=== PATIENT | female | born 1930 | race Caucasian/White ===

== ENCOUNTER 2018-09-08 13:02 | Emergency (ER) | payer MEDICARE, BC ==
--- NOTE | 2018-09-08 13:21 | ER Document Report ---
Addendum entered and electronically signed by KAHLIL PUCKETT NP 09/08/18 13:24: ED Medical Screen (RME) - General Chief Complaint: Fall Injury Stated Complaint: FALL/BODY INJURY Time Seen by Provider: 09/08/18 13:08 Primary Care Provider: CISCO HDZ DO [Primary Care Provider] - Follow up as needed Mode of Arrival: Wheelchair Notes: Daughter also reports slight change in behavior and more crying. Reports patient does not wash herself as well. TRAVEL OUTSIDE OF THE [place] IN LAST 30 DAYS: No - Related Data Allergies/Adverse Reactions: No Known Allergies Allergy (Verified 09/08/18 13:03) Original Note: ED Medical Screen (RME) - General Chief Complaint: Fall Injury Stated Complaint: FALL/BODY INJURY Time Seen by Provider: 09/08/18 13:08 Primary Care Provider: CISCO HDZ DO [Primary Care Provider] - Follow up as needed Mode of Arrival: Wheelchair Information source: Patient, Relative Notes: Patient presents emergency department with left hand skin tear. Daughter at her side reports patient tripped going up some steps in her house hit her hand and hit her head. Patient is taking anticoagulants. Daughter at her side reports patient has history of strokes and Alzheimer's so does not answer questions appropriately all the time. She is not sure if patient tripped or became dizzy. I have greeted and performed a rapid initial assessment of this patient. A comprehensive ED assessment and evaluation of the patient, analysis of test r esults and completion of the medical decision making process will be conducted by additional ED providers. Dictation of this chart was performed using voice recognition software; therefore, there may be some unintended grammatical errors. TRAVEL OUTSIDE OF THE [place] IN LAST 30 DAYS: No - Related Data Allergies/Adverse Reactions: No Known Allergies Allergy (Verified 09/08/18 13:03) Past Medical History - Past Medical History Cardiac Medical History: Reports: Hx Hypertension - reports history of high blood pressure but no longer taking medications Denies: Hx Coronary Artery Disease Pulmonary Medical History: Denies: Hx Asthma Endocrine Medical History: Denies: Hx Diabetes Mellitus Type 1, Hx Diabetes Mellitus Type 2 Past Surgical History: Reports: Hx Breast Surgery - right mastectomy, Hx Tubal Ligation - Immunizations Hx Diphtheria, Pertussis, Tetanus Vaccination: Yes - 2007 Doctor's Discharge - Discharge Referrals: CISCO HDZ DO [Primary Care Provider] - Follow up as needed
--- NOTE | 2018-09-08 13:49 | RADIOLOGY REPORT (SQ) ---
EXAM DESCRIPTION: CT CERVICAL SPINE WITHOUT COMPLETED DATE/TIME: 09/08/2018 1:33 pm REASON FOR STUDY: fall hit head COMPARISON: None. TECHNIQUE: Axial images acquired through the cervical spine without intravenous contrast. Images re viewed with lung, soft tissue and bone windows. Reconstructed coronal and sagittal MPR images review ed. Images stored on PACS. All CT scanners at this facility use dose modulation, iterative reconstruction, and/or weight based d osing when appropriate to reduce radiation dose to as low as reasonably achievable (ALARA). [facility]: Dose Right [facility]: CareDose [facility]: Dose Right [facility]: Teradose 4D [facility]: [employer] RADIATION DOSE: CT Rad equipment meets quality standard of care and radiation dose reduction techniq ues were employed. CTDIvol: 8.5 mGy. DLP: 154 mGy-cm. mGy. LIMITATIONS: None. FINDINGS: ALIGNMENT: Anatomic. MINERALIZATION: Normal. VERTEBRAL BODIES: No fractures or dislocation. DISCS: Mild disc narrowing at C4-5, C5-6, and C6-7 with small marginal osteophytes. FACETS, LATERAL MASSES, POSTERIOR ELEMENTS: Hypertrophic facet changes on the right at C4-5. No frac tures. HARDWARE: None in the spine. VISUALIZED RIBS: No fractures. LUNG APICES AND SOFT TISSUES: No significant or acute findings. OTHER: No other significant finding. IMPRESSION: Mild degenerative disc disease, spondylosis, and facet arthropathy. No acute finding. TECHNICAL DOCUMENTATION: JOB ID: [id number] Quality ID # [id number]: Final reports with documentation of one or more dose reduction techniques (e.g., Au tomated exposure control, adjustment of the mA and/or kV according to patient size, use of iterative reconstruction technique) 2010 [employer]- All Rights Reserved Reading location - IP/workstation name: [email or web address]
--- NOTE | 2018-09-08 14:00 | RADIOLOGY REPORT (SQ) ---
EXAM DESCRIPTION: CT HEAD WITHOUT COMPLETED DATE/TIME: 09/08/2018 1:33 pm REASON FOR STUDY: fall, skin tear left hand, hit head COMPARISON: None. TECHNIQUE: Axial images acquired through the brain without intravenous contrast. Images reviewed wi th bone, brain and subdural windows. Additional sagittal and coronal reconstructions were generated. Images stored on PACS. All CT scanners at this facility use dose modulation, iterative reconstruction, and/or weight based d osing when appropriate to reduce radiation dose to as low as reasonably achievable (ALARA). [facility]: Dose Right [facility]: CareDose [facility]: Dose Right [facility]: Teradose 4D [facility]: [employer] RADIATION DOSE: CT Rad equipment meets quality standard of care and radiation dose reduction techniq ues were employed. CTDIvol: 53.2 mGy. DLP: 1017 mGy-cm.mGy. LIMITATIONS: None. FINDINGS: VENTRICLES: Prominent. CEREBRUM: No masses. No hemorrhage. No midline shift. Areas of low density in the white matter mos t likely due to chronic micro-vascular ischemic change. No evidence for acute infarction. CEREBELLUM: No masses. No hemorrhage. No alteration of density. No evidence for acute infarction. EXTRAAXIAL SPACES: Age-related involutional change. No fluid collections. No masses. ORBITS AND GLOBE: No intra- or extraconal masses. Normal contour of globe without masses. CALVARIUM: No fracture. PARANASAL SINUSES: No fluid or mucosal thickening. SOFT TISSUES: No mass or hematoma. OTHER: No other significant finding. IMPRESSION: CHRONIC CHANGES OF ATROPHY AND MICROVASCULAR ISCHEMIA. NO ACUTE PROCESS. EVIDENCE OF ACUTE STROKE: NO. TECHNICAL DOCUMENTATION: JOB ID: [id number] Quality ID # [id number]: Final reports with documentation of one or more dose reduction techniques (e.g., Au tomated exposure control, adjustment of the mA and/or kV according to patient size, use of iterative reconstruction technique) 2010 [employer]- All Rights Reserved Reading location - IP/workstation name: [email or web address]
[2018-09-08] MEDS ORDERED: ACETAMINOPHEN 325 MG TABLET PO ONE (14:26)
--- NOTE | 2018-09-08 15:46 | RADIOLOGY REPORT (SQ) ---
EXAM DESCRIPTION: HAND LEFT 3 VIEWS COMPLETED DATE/TIME: 09/08/2018 1:40 pm REASON FOR STUDY: fall, skin tear left hand, hit head COMPARISON: None. EXAM PARAMETERS: NUMBER OF VIEWS: Three views. TECHNIQUE: AP, lateral and oblique radiographic images acquired of the left hand. LIMITATIONS: None. FINDINGS: MINERALIZATION: Normal. BONES: No acute fracture or dislocation. No worrisome bone lesions. JOINTS: Degenerative joint changes seen in some of the interphalangeal joints. SOFT TISSUES: No soft tissue swelling. No foreign body. OTHER: No other significant finding. IMPRESSION: Degenerative joint disease. No acute osseous abnormality. TECHNICAL DOCUMENTATION: JOB ID: [id number] [employer]- All Rights Reserved Reading location - IP/workstation name: [email or web address]
--- NOTE | 2018-09-08 16:16 | ER Document Report ---
ED Fall - General Chief Complaint: Fall Injury Stated Complaint: FALL/BODY INJURY Time Seen by Provider: 09/08/18 13:08 Primary Care Provider: CISCO HDZ DO [Primary Care Provider] - Follow up as needed Mode of Arrival: Wheelchair Information source: Patient, Relative TRAVEL OUTSIDE OF THE [place] IN LAST 30 DAYS: No - HPI Notes: Patient is a 87-year-old female history of Alzheimer's, multiple CVA's with right lower extremity weakness, multiple falls who presents to the emergency department after a witnessed fall by her . not present at the bedside in the ER. The family at the bedside states that they were told that she was walking up to carpeted steps when she tripped and fell onto her left side. Family states she has a laceration on to the top of her left hand. They state she had no loss of consciousness and has had no vomiting after the fall. The family reports that the patient has ambulated after the fall but with assistance. Patient is supposed to use a cane but refuses to do so. Family also mention that they are unsure if she used the rail to help step up the stairs, they state she potentially had a handful of the items as she was walking up the steps as they were noted to be scattered on the floor around the patient. Patient at the moment only complains of left hand pain. Denies head or neck pain. Denies hip pain. Patient does have some swelling to her lower extremities which the family report is not new and has been ongoing for over one a year. They report that the primary care physician is aware of this. Patient does have multiple bruises to her lower extremities which the daughter states are not new as of today after the fall. - Related data Allergies/Adverse Reactions: No Known Allergies Allergy (Verified 09/08/18 13:03) Past Medical History - General Information source: Patient, Relative - Social History Smoking Status: Unknown if Ever Smoked Chew tobacco use (# tins/day): No Frequency of alcohol use: None Drug Abuse: None Family History: Reviewed & Not Pertinent Patient has suicidal ideation: No Patient has homicidal ideation: No - Past Medical History Cardiac Medical History: Reports: Hx Hypertension - reports history of high blood pressure but no longer taking medications Denies: Hx Coronary Artery Disease Pulmonary Medical History: Reports: None Denies: Hx Asthma EENT Medical History: Reports: None Neurological Medical History: Reports: Hx Cerebrovascular Accident - Family reports multiple CVA's with right sided weakness. Endocrine Medical History: Reports: None. Denies: Hx Diabetes Mellitus Type 1, Hx Diabetes Mellitus Type 2 Renal/ Medical History: Reports: None. Denies: Hx Peritoneal Dialysis Malignancy Medical History: Reports: None GI Medical History: Reports: None Musculoskeletal Medical History: Reports None Skin Medical History: Reports None Psychiatric Medical History: Reports: Other - Alzheimers Traumatic Medical History: Reports: None Infectious Medical History: Reports: None Past Surgical History: Reports: Hx Breast Surgery - right mastectomy, Hx Tubal Ligation - Immunizations Hx Diphtheria, Pertussis, Tetanus Vaccination: Yes - 2007 Review of Systems - Review of Systems Constitutional: No symptoms reported EENT: No symptoms reported Cardiovascular: No symptoms reported Respiratory: No symptoms reported Gastrointestinal: No symptoms reported Genitourinary: No symptoms reported Female Genitourinary: No symptoms reported Musculoskeletal: See HPI Skin: See HPI Hematologic/Lymphatic: No symptoms reported Neurological/Psychological: No symptoms reported Physical Exam - Vital signs Vitals: Temp Pulse BP Pulse Ox 98.6 F 76 160/80 H 98 09/08/18 13:58 09/08/18 13:58 09/08/18 13:58 09/08/18 13:58 Interpretation: Hypertensive - Notes Notes: GENERAL: Well-appearing, well-nourished and in no acute distress. HEAD: Atraumatic, normocephalic. No ecchymosis, hematoma or lacerations noted on the head. No battles sign or raccoon eyes. EYES: Pupils equal round and reactive to light at 3mm bilaterally, extraocular movements intact, sclera anicteric, conjunctiva are normal. ENT: TMs normal, nares patent, oropharynx clear without exudates. Moist mucous membranes. NECK: Normal range of motion, supple without lymphadenopathy or JVD. LUNGS: Breath sounds clear to auscultation bilaterally and equal. No wheezes rales or rhonchi. HEART: Regular rate and rhythm without murmurs, rubs or gallops. ABDOMEN: Soft, nontender, normoactive bowel sounds. No guarding, no rebound. No masses appreciated. BACK: No cervical, thoracic, lumbar midline tenderness. No saddle anesthesia, normal distal neurovascular exam. Small circular area of erythema noted to the mid upper back that family reports is from her medication patch. No bruising. GENITOURINARY: Deferred. EXTREMITIES: Normal range of motion, edema noted to bilateral lower extremities, non pitting. No clubbing or cyanosis. With left hand patient is able to make a fist with strong statistical assistant, denies numbness or tingling, + opposition, + flexion and extension to all fingers on left hand. + strong left radial pulse. No obvious bony deformity, Irregular v-shaped skin tear to the top of the left hand - bleeding controlled. NEUROLOGICAL: Cranial nerves II through XII grossly intact. Pleasantly confused. PSYCH: Normal mood, normal affect. SKIN: Warm, Dry, normal turgor, no rashes or lesions noted. Course - Re-evaluation Re-evalutation: 09/08/18 After discussion with the family they report that the patient is acting herself since the fall. During multiple interactions with the patient she has been ple asantly confused. Patient's work-up was negative for any acute abnormality. She is to be discharged and follow-up with with her primary care physician at her already scheduled visit this . Family verbalizes understanding. Informed patient family members that she needs to use for cane and have assistance when ambulating. Patient to return if there is any change in mental status, vomiting, inability to tolerate fluids or any worsening signs or symptoms. - Vital Signs Vital signs: Temp Pulse Resp BP Pulse Ox 98.6 F 76 18 150/78 H 99 09/08/18 18:41 09/08/18 18:41 09/08/18 18:41 09/08/18 18:41 09/08/18 18:41 - Laboratory Result Diagrams: 09/08/18 16:19 09/08/18 16:19 Laboratory results interpreted by me: 09/08/18 09/08/18 16:19 16:19 Hgb 11.6 L Hct 34.7 L RDW 14.5 H Seg Neutrophils % 80.0 H Glucose 120 H Alkaline Phosphatase 36 L Total Protein 6.2 L - Diagnostic Test Radiology reviewed: Reports reviewed Radiology results interpreted by me: 09/08/18 CT of the neck showed mild degenerative disc disease with spondylosis. There was no acute finding. CT of the head showed chronic changes of atrophy and micro-vascular ischemia which appear to be chronic. There was no acute process or no evidence of stroke. Patient x-ray of the hand showed no acute fracture dislocation. Patient did have degenerative joint changes seen in some of the interphalangeal joints. There was no soft tissue swelling or no foreign body noted. - EKG Interpretation by Me Additional EKG results interpreted by me: 09/08/18 Patient's EKG computer read as atrial fibrillation. Upon their further evaluation there is a P wave noted. The rhythm is a sinus rhythm with a heart rate of 68. There is a normal axis deviation with no ST or T wave changes in consecutive leads. Patient does have a normal axis deviation Procedures - Laceration/Wound Repair Left Dorsal Hand Wound length (cm): 3 Wound's Depth, Shape: Superficial, Irregular, Flap Laceration pre-procedure: Shur-Clens applied Volume Anesthetic (mLs): 0 Wound explored: Clean, No foreign body removed Irrigated w/ Saline (mLs): 500 Wound Repaired With: Steri-strips Number of Sutures: 0 Post-procedure wound care: Sterile dressing applied Post-procedure NV exam normal: Yes Complications: No Notes: 09/08/18 Left hand skin tear irrigated with shurclens and saline. No foreign body removed. Bleeding noted after irrigation. Pressure held for 5-8 minutes in which that time the bleeding subsided. Nine steri strips applied to skin tear which appeared to hold the skin together appropriately. Applied a non stick telfa dressing with kerlix and coban to apply constant steady pressure. Patient neuro intact after dressing placement. Educated family to keep this dressing intact until already scheduled follow up appointment with her doctor on . Discussed strict return precautions to include fever, change in mental status that is different from her normal, discoloration of her fingers, chest pain, shortness of breath or any other concerning signs or symptoms. Discharge - Discharge Clinical Impression: Laceration Fall Qualifiers: Encounter type: initial encounter Qualified Code(s): W19.XXXA - Unspecified fall, initial encounter Condition: Stable Disposition: HOME, SELF-CARE Additional Instructions: Today you are seen in the emergency department after a fall. Your work-up was unremarkable. Your left hand laceration was cleaned and repaired with Steri- Strips. This was a large skin tear that appeared to be very superficial after cleaning. Please keep the compressive dressing on until follow-up with the primary care physician on . Please return to the emergency department for any worsening signs or symptoms to include chest pain, shortness of breath, dizziness, repeat fall with injury or any other concerning signs or symptoms. Please use your cane and have someone with you while ambulating. Wear non skid shoes and socks at all times, use hand rails in your home when going down or up the stairs, remove loose rugs within the house to help prevent falling. Laceration Care Your laceration has been sutured to keep the skin edges aligned during healing. The time of suture removal depends on the nature and location of your cut. Please follow the care instructions the doctor has outlined for you and return for further care, according to the schedule you've been given. Keep the wound and dressing clean. Unless you were told otherwise, you may shower daily, blotting the wound dry with a clean, unused towel. At other times, If the dressing gets wet or blood soaked, remove it and blot the wound dry, then reapply a new dressing. Unless you were instructed otherwise, dressings should be changed at least daily. If any signs of infection occur (swelling, redness, increasing tenderness, red streaks, tender lumps in the armpit or groin above the laceration, or fever), see the doctor immediately. Referrals: CISCO HDZ DO [Primary Care Provider] - Follow up as needed
[2018-09-08 16:28] LABS: ABSOLUTE LYMPHOCYTES (AUTO) 1.2 10^3/uL (0.5-4.7); ABSOLUTE MONOCYTES (AUTO) 0.5 10^3/uL (0.1-1.4); BASOPHILS % (AUTO) 0.5 % (0-2); EOSINOPHILS % (AUTO) 0.2 % (0-6); HEMATOCRIT 34.7 % (36.0-47.0); HEMOGLOBIN 11.6 g/dL (12.0-15.5); LYMPHOCYTES % (AUTO) 14.1 % (13-45); MEAN CORPUSCULAR HEMOGLOBIN 29.9 pg (27.0-33.4); MEAN CORPUSCULAR HGB CONC 33.3 g/dL (32.0-36.0); MEAN CORPUSCULAR VOLUME 90 fl (80-97); MONOCYTES % (AUTO) 5.2 % (3-13); PLATELET COUNT 247 10^3/uL (150-450); RED BLOOD COUNT 3.87 10^6/uL (3.72-5.28); RED CELL DISTRIBUTION WIDTH 14.5 % (11.5-14.0); TOTAL CELLS COUNTED % (AUTO) 100 %; WHITE BLOOD COUNT 8.8 10^3/uL (4.0-10.5)
[2018-09-08 16:34] LABS: PARTIAL THROMBOPLASTIN TIME 28.3 SEC (23.5-35.8); PROTHROMBIN TIME 12.6 SEC (11.4-15.4)
[2018-09-08 16:46] LABS: ALANINE AMINOTRANSFERASE 22 U/L (9-52); ALBUMIN 3.8 g/dL (3.5-5.0); ALKALINE PHOSPHATASE 36 U/L (38-126); ANION GAP 5 (5-19); ASPARTATE AMINO TRANSFERASE 19 U/L (14-36); BILIRUBIN,DIRECT 0.3 mg/dL (0.0-0.4); BILIRUBIN,TOTAL 0.7 mg/dL (0.2-1.3); BLOOD UREA NITROGEN 18 mg/dL (7-20); CALCIUM 9.4 mg/dL (8.4-10.2); CARBON DIOXIDE 28 mmol/L (22-30); CHLORIDE 107 mmol/L (98-107); GLUCOSE 120 mg/dL (75-110); SODIUM 140.1 mmol/L (137-145); TOTAL PROTEIN 6.2 g/dL (6.3-8.2)
[2018-09-08 17:02] LABS: APPEARANCE,URINE CLEAR; BILIRUBIN,URINE NEGATIVE (NEGATIVE); COLOR,URINE YELLOW; GLUCOSE, URINE NEGATIVE (NEGATIVE); KETONES,URINE NEGATIVE (NEGATIVE); LEUKOCYTE ESTERASE,URINE NEGATIVE (NEGATIVE); NITRITE,URINE NEGATIVE (NEGATIVE); PROTEIN,URINE NEGATIVE (NEGATIVE); UROBILINOGEN,URINE NEGATIVE mg/dL (<2.0)
[2018-09-08 18:42] VITALS: BP 150/78
--- NOTE | 2018-09-08 19:24 | EKG REPORT ---
SEVERITY:- BORDERLINE ECG - NSR 68. BASELINE ARTEFACTS IN LATERAL LEADS. : Confirmed by: Haider Morales MD 08-Sep-2018 19:24:03
== END 2018-09-08 18:43 | disposition home or self-care (01) ==
LOC: ER 13:02
PROC: 0HQGXZZ Repair Left Hand Skin, External Approach (ICD-10-PCS; principal; 2018-09-08)
DX: S61.412A Laceration without foreign body of left hand, initial encounter (principal); W10.8XXA Fall (on) (from) other stairs and steps, initial encounter; Y93.9 Activity, unspecified; Y92.9 Unspecified place or not applicable; S80.10XA Contusion of unspecified lower leg, initial encounter; I48.91 Unspecified atrial fibrillation; Y99.9 Unspecified external cause status; G30.9 Alzheimer's disease, unspecified; F02.80 Dementia in other diseases classified elsewhere, unspecified severity, without behavioral disturbance, psychotic disturbance, mood disturbance, and anxiety; I69.398 Other sequelae of cerebral infarction; Z90.11 Acquired absence of right breast and nipple; Z98.51 Tubal ligation status
CPT/HCPCS: 99284; 36415; 87086; 85025; 85610; 85730; 87088; 80053; 81001; 87186; 73130; 70450; 72125; 93005; 93010; 12002; A9270

== ENCOUNTER 2018-11-19 19:12 | Emergency (ER) | payer MEDICARE, BC ==
[2018-11-19 20:27] LABS: INTERNATIONAL RATION (INR) 1.06; PROTHROMBIN TIME 13.8 SEC (11.4-15.4)
[2018-11-19 20:28] LABS: PARTIAL THROMBOPLASTIN TIME 28.1 SEC (23.5-35.8)
[2018-11-19 20:39] LABS: ALBUMIN 3.4 g/dL (3.5-5.0); ALKALINE PHOSPHATASE 27 U/L (38-126); ANION GAP 6 (5-19); ASPARTATE AMINO TRANSFERASE 22 U/L (14-36); BILIRUBIN,DIRECT 0.1 mg/dL (0.0-0.4); BILIRUBIN,TOTAL 0.3 mg/dL (0.2-1.3); BLOOD UREA NITROGEN 22 mg/dL (7-20); CALCIUM 8.5 mg/dL (8.4-10.2); CARBON DIOXIDE 25 mmol/L (22-30); CHLORIDE 106 mmol/L (98-107); GLUCOSE 110 mg/dL (75-110); POTASSIUM 3.9 mmol/L (3.6-5.0); TOTAL PROTEIN 5.6 g/dL (6.3-8.2)
--- NOTE | 2018-11-19 22:19 | ER Document Report ---
ED General - General Chief Complaint: Arm Injury Stated Complaint: FALL Time Seen by Provider: 11/19/18 21:57 Mode of Arrival: Medic Information source: Patient, Relative TRAVEL OUTSIDE OF THE [place] IN LAST 30 DAYS: No - HPI Notes: Patient is a 88-year-old female history of dementia presents emergency department from home by EMS with report from the patient's son who is a caregiver that the patient was going down some steps to the [place] and slipped and fell injuring her left side and striking her head. The patient is at her mental status baseline and there is no unilateral weakness. She admits to losing her step when she fell but she denies any syncope or other injury. The patient reports no neck pain or midline back pain. The patient denies any focal numbness or paresthesia or focal weakness. No abdominal pain or chest pain. No cough or congestion. No recent medication changes. For EMS the patient was normotensive, arrives slightly hypertensive and then settled out to a normal blood pressure. Patient was given Ultram and Advil prior to arrival. Medications Plavix quetiapine tramadol prednisone vitamin D2 duloxetine and Rivastigmine - Related Data Allergies/Adverse Reactions: No Known Allergies Allergy (Verified 09/08/18 13:03) Past Medical History - General Information source: Patient, Relative - Social History Smoking Status: Unknown if Ever Smoked Frequency of alcohol use: None Drug Abuse: None Lives with: Family Family History: Reviewed & Not Pertinent Patient has suicidal ideation: No Patient has homicidal ideation: No - Past Medical History Cardiac Medical History: Reports: Hx Hypertension - reports history of high blood pressure but no longer taking medications Denies: Hx Coronary Artery Disease Pulmonary Medical History: Denies: Hx Asthma Neurological Medical History: Reports: Hx Cerebrovascular Accident - Family reports multiple CVA's with right sided weakness. Endocrine Medical History: Denies: Hx Diabetes Mellitus Type 1, Hx Diabetes Mellitus Type 2 Renal/ Medical History: Denies: Hx Peritoneal Dialysis Past Surgical History: Reports: Hx Breast Surgery - right mastectomy, Hx Tubal Ligation - Immunizations Hx Diphtheria, Pertussis, Tetanus Vaccination: Yes - 2007 Review of Systems - Review of Systems -: Yes All other systems reviewed and negative Physical Exam - Vital signs Vitals: Resp BP Pulse Ox 11 L 177/77 H 97 11/19/18 19:31 11/19/18 19:31 08/14/19 19:31 - Notes Notes: PHYSICAL EXAMINATION: GENERAL: Well-appearing, well-nourished and in no acute distress. HEAD: Right forehead contusion and abrasion. No bony deformity or crepitance. EYES: Pupils equal round and reactive to light, extraocular movements intact, conjunctiva are normal. ENT: Nares patent, oropharynx clear without exudates. Moist mucous membranes. NECK: Normal range of motion, supple without lymphadenopathy. Nontender LUNGS: Breath sounds clear to auscultation bilaterally and equal. No wheezes rales or rhonchi. HEART: Regular rate and rhythm without murmurs ABDOMEN: Soft, nontender, nondistended abdomen. No guarding, no rebound. No masses appreciated. Female : deferred Musculoskeletal: Normal range of motion, no pitting or edema. No cyanosis. Patient has some pain to the right lateral fibular region. No bony deformity or crepitance there is an overlying contusion there. NEUROLOGICAL: Cranial nerves grossly intact. Normal speech, normal gait. Normal sensory, motor exams. Patient is alert but has some word finding difficulties which the patient's family states is chronic. No unilateral motor or sensory deficits. Patient has chronic long-standing dementia, and family states that this is her normal mentation and speech. PSYCH: Normal mood, normal affect. SKIN: Warm, Dry, normal turgor. Patient has multiple skin tears left upper extremity and left lower extremity. Nothing that would require suturing. The only pain is over the left lateral fibular region. Distally, the patient is neurovascularly intact. Good pulses. No evidence for infection or foreign body. Course - Re-evaluation Re-evalutation: 11/19/18 22:19 Patient's son states that last tetanus was in the last few months related to [facility] previous falls. Head CT was negative and x-ray of the left lower extremity was negative. The pa tient had the wounds cleaned and there was minimal bleeding from the left lower extremity wound but this subsided. The patient was able to ambulate per her baseline. She should be using a walker and or canes, but she usually does not. She was encouraged to use a walker. The son felt stable with the patient going home. 11/20/18 01:15 - Vital Signs Vital signs: Temp Pulse Resp BP Pulse Ox 98.1 F 56 L 16 160/66 H 95 11/19/18 19:35 11/19/18 19:35 11/19/18 21:34 11/19/18 21:34 11/19/18 21:34 - Laboratory Result Diagrams: 11/19/18 20:00 Laboratory results interpreted by me: 11/19/18 20:00 BUN 22 H Alkaline Phosphatase 27 L Total Protein 5.6 L Albumin 3.4 L Discharge - Discharge Clinical Impression: Skin tear Accidental fall Qualifiers: Encounter type: initial encounter Qualified Code(s): W19.XXXA - Unspecified fall, initial encounter Head injury Qualifiers: Encounter type: initial encounter Qualified Code(s): S09.90XA - Unspecified injury of head, initial encounter Contusion Qualifiers: Encounter type: initial encounter Contusion area: lower leg Laterality: left Qualified Code(s): S80.12XA - Contusion of left lower leg, initial encounter Condition: Stable Disposition: HOME, SELF-CARE Instructions: Skin Tear ([facility]), Head Injury Precautions ([facility]) Additional Instructions: Keep wounds clean and dry. Change wound dressings every 1 to 2 days. Return to the emergency department in case of uncontrolled bleeding, significant pain or redness or fever. No Plavix (clopidogrel) for at least 5 days or until bleeding has subsided. Recommend to use a walker to prevent falls.
--- NOTE | 2018-11-19 23:07 | RADIOLOGY REPORT (SQ) ---
EXAM DESCRIPTION: XR TIBIA FIBULA 2 VIEWS COMPLETED DATE/TME: 11/19/2018 22:12 CLINICAL HISTORY: 88 years Female, fall with L leg injury COMPARISON: None. Findings: Known soft tissue injury; no radioopaque foreign body. Chondrocalcinosis of the left knee. Bones, joints, and soft tissues of the LEFT XR TIBIA FIBULA 2 VIEWS appear otherwise intact. IMPRESSION: Soft tissue injury; else, no acute findings.
--- NOTE | 2018-11-19 23:26 | RADIOLOGY REPORT (SQ) ---
EXAM DESCRIPTION: CT HEAD WITHOUT IV CONTRAST COMPLETED DATE/TME: 11/19/2018 22:11 CLINICAL HISTORY: 88 years, Female, Head injury COMPARISON: CT head 09/08/2018 TECHNIQUE: Axial images of the head were performed without the use of intravenous contrast, with sagittal and coronal reformatted images. Images stored on PACS. All CT scanners at this facility use dose modulation, iterative reconstruction, and/or weight based dosing when appropriate to reduce radiation dose to as low as reasonably achievable (ALARA). [facility]: Dose Right [facility]: CareDose [facility]: Dose Right [facility]: Teradose 4D [facility]: Simpirica Spine LIMITATIONS: None. FINDINGS: No skull fracture. No intracranial bleed. No evidence of acute infarct. No evidence of mass or hydrocephalus. There is cortical atrophy and chronic white matter ischemic changes. There is no significant change, as compared with the prior CT scan. IMPRESSION: No skull fracture. No intracranial bleed. TECHNICAL DOCUMENTATION: Quality ID # 436: Final reports with documentation of one or more dose reduction techniques (e.g., Automated exposure control, adjustment of the mA and/or kV according to patient size, use of iterative reconstruction technique) copyright 2010 [employer]- All Rights Reserved
[2018-11-20] MEDS ORDERED: TRAMADOL HCL 50 MG TABLET PO ONE (00:27)
[2018-11-20 01:35] VITALS: BP 183/65
== END 2018-11-20 01:25 | disposition home or self-care (01) ==
LOC: ER 19:12
DX: S09.90XA Unspecified injury of head, initial encounter (principal); S80.12XA Contusion of left lower leg, initial encounter; S41.112A Laceration without foreign body of left upper arm, initial encounter; S81.812A Laceration without foreign body, left lower leg, initial encounter; W19.XXXA Unspecified fall, initial encounter; Z79.01 Long term (current) use of anticoagulants; Z79.899 Other long term (current) drug therapy
CPT/HCPCS: 99284; 36415; 85610; 85730; 80053; 84484; 73590; 70450; A9270

== ENCOUNTER 2019-02-07 08:06 | Observation (INO) | payer MEDICARE, BC ==
[2019-02-07 09:13] LABS: ABSOLUTE BASOPHILS # (AUTO) 0.1 10^3/uL (0.0-0.2); ABSOLUTE EOSINOPHILS # (AUTO) 0.1 10^3/uL (0.0-0.6); ABSOLUTE LYMPHOCYTES (AUTO) 2.5 10^3/uL (0.5-4.7); ABSOLUTE MONOCYTES (AUTO) 0.9 10^3/uL (0.1-1.4); ABSOLUTE NEUT (AUTO) 5.3 10^3/uL (1.7-8.2); BASOPHILS % (AUTO) 0.7 % (0-2); EOSINOPHILS % (AUTO) 1.4 % (0-6); HEMOGLOBIN 10.6 g/dL (12.0-15.5); LYMPHOCYTES % (AUTO) 27.8 % (13-45); MEAN CORPUSCULAR HEMOGLOBIN 27.7 pg (27.0-33.4); MEAN CORPUSCULAR HGB CONC 32.1 g/dL (32.0-36.0); MEAN CORPUSCULAR VOLUME 86 fl (80-97); MONOCYTES % (AUTO) 10.3 % (3-13); PLATELET COUNT 318 10^3/uL (150-450); RED BLOOD COUNT 3.83 10^6/uL (3.72-5.28); RED CELL DISTRIBUTION WIDTH 17.5 % (11.5-14.0); SEGMENTED NEUTROPHILS % (AUTO) 59.8 % (42-78); TOTAL CELLS COUNTED % (AUTO) 100 %; WHITE BLOOD COUNT 8.8 10^3/uL (4.0-10.5)
[2019-02-07] MEDS ORDERED: NORMAL SALINE 1000 ML 1,000 ML IV ONE (09:24)
--- NOTE | 2019-02-07 09:26 | ER Document Report ---
ED General - General Chief Complaint: Altered Mental Status Stated Complaint: LOSS OF APPETITE Time Seen by Provider: 02/07/19 09:12 Notes: 88-year-old female presenting with a chief complaint of mild agitation and diminished oral intake. This is an elderly lady with a history of moderate dementia who lives at home with her children. She has been subject to multiple falls over several years. He is oriented to person only at baseline. Patient was transported here via EMS today because of family members concerned that her oral intake had been diminished over several days. They also note that she is a little more agitated than usual. Patient is periodically pointing to suprapubic area and complaining of discomfort. No fever chills or emesis reported. History is obtained primarily from EMS report. History obtained from the sandra ent very limited due to her dementia. Onset is gradual over several days. Duration: Persistent. Quality: As described above. Location: Suprapubic discomfort. Radiation: None reported. Precipitating factors: Associated with diminished oral intake per family. Relieving factors: None Severity: Moderate Pertinent prior history as indicated above. TRAVEL OUTSIDE OF THE [place] IN LAST 30 DAYS: No - Related Data Allergies/Adverse Reactions: No Known Allergies Allergy (Verified 02/07/19 10:18) Home Medications: Sulfamethoxazole-TMP SS. Ferrous Sulfate. Clopidogrel Bisulfat. Prednisone. Duloxetine HCL DR. Tramadol HCL. Quetiapine Fumarate Past Medical History - Social History Smoking Status: Unknown if Ever Smoked Family History: Reviewed & Not Pertinent Patient has suicidal ideation: No Patient has homicidal ideation: No - Past Medical History Cardiac Medical History: Reports: Hx Hypertension - reports history of high blood pressure but no longer taking medications Denies: Hx Coronary Artery Disease Pulmonary Medical History: Denies: Hx Asthma Neurological Medical History: Reports: Hx Cerebrovascular Accident - Family reports multiple CVA's with right sided weakness. 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 Physical Exam - Vital signs Vitals: Temp Pulse Resp BP Pulse Ox 97.9 F 68 16 137/100 H 100 02/07/19 08:10 02/07/19 08:10 02/07/19 08:10 02/07/19 08:10 02/07/19 08:10 Notes: GENERAL: Somewhat frail elderly female appearing mildly agitated. SKIN: Mildly diminished with scattered ecchymoses upper and lower extremities of variable ages.. HEAD: Normocephalic atraumatic. EYES: PERRLA. Conjunctivae and sclerae clear. EARS: CANALS AND TMS CLEAR. NOSE: CLEAR. MOUTH: Oral mucosa is dry. Lips appear parched. No stridor or edema. No drooling. NECK: Supple. No masses or thyromegaly. No adenopathy. Carotids 2+ without bruits. No JVD. BACK: Symmetrical without tenderness. CHEST: Respirations unlabored. Breath sounds clear and symmetrical. HEART: Regular rhythm. No murmur gallop or rub. ABDOMEN: Soft with mild suprapubic tenderness. No masses, organomegaly or rebound. Bowel sounds normally active. No bruits. GENITALIA: Deferred. EXTREMITIES: 1+ pretibial edema bilateral. No calf tenderness. Cap refill less than 1.5 seconds. Dorsalis pedis and posterior tibial pulses 3+ and symmetrical. NEUROLOGICAL: GCS 14. Patient is oriented only to person as per baseline. Speech pattern is halting. Cranial nerves II through XII intact. Sensorimotor and cerebellar normal. Normal tone. Course - Re-evaluation Re-evalutation: 02/07/19 09:35 I am somewhat suspicious this lady may have a urinary tract infection. Urinalysis is been submitted to the lab and we will also obtain CBC and comprehensive chemistry profile as well as a chest x-ray. She appears dehydrated will receive some normal saline IV hydration. - Vital Signs Vital signs: Temp Pulse Resp BP Pulse Ox 97.9 F 68 16 137/100 H 100 02/07/19 08:10 02/07/19 08:10 02/07/19 08:10 02/07/19 08:10 02/07/19 08:10 - Laboratory Result Diagrams: 02/07/19 08:57 02/07/19 08:57 Laboratory results interpreted by me: 02/07/19 02/07/19 02/07/19 08:57 08:57 08:57 Hgb 10.6 L Hct 33.0 L RDW 17.5 H Glucose 72 L Magnesium 2.4 H Urine Blood MODERATE H Ur Leukocyte Esterase MODERATE H Discharge - Discharge Clinical Impression: Dehydration Urinary tract infection Qualifiers: Urinary tract infection type: acute cystitis Hematuria presence: without hematuria Qualified Code(s): N30.00 - Acute cystitis without hematuria Dementia Qualifiers: Dementia type: unspecified type Dementia behavioral disturbance: with behavioral disturbance Qualified Code(s): F03.91 - Unspecified dementia with behavioral disturbance Condition: Stable Disposition: ADMITTED INPATIENT Admitting Provider: Arlyn (Hospitalist) - [facility] Unit Admitted: Medical Floor
[2019-02-07 09:30] LABS: AMORPHOUS SEDIMENT,URINE TRACE /HPF; APPEARANCE,URINE CLOUDY; BILIRUBIN,URINE NEGATIVE (NEGATIVE); COLOR,URINE YELLOW; GLUCOSE, URINE NEGATIVE (NEGATIVE); KETONES,URINE NEGATIVE (NEGATIVE); LEUKOCYTE ESTERASE,URINE MODERATE (NEGATIVE); NITRITE,URINE NEGATIVE (NEGATIVE); PROTEIN,URINE NEGATIVE (NEGATIVE); URINE SPECIFIC GRAVITY 1.009; UROBILINOGEN,URINE NEGATIVE mg/dL (<2.0)
[2019-02-07 09:32] LABS: ALBUMIN 3.7 g/dL (3.5-5.0); ALKALINE PHOSPHATASE 38 U/L (38-126); ANION GAP 5 (5-19); ASPARTATE AMINO TRANSFERASE 25 U/L (14-36); BILIRUBIN,DIRECT 0.2 mg/dL (0.0-0.4); BILIRUBIN,TOTAL 0.9 mg/dL (0.2-1.3); BLOOD UREA NITROGEN 14 mg/dL (7-20); CALCIUM 8.7 mg/dL (8.4-10.2); CARBON DIOXIDE 26 mmol/L (22-30); CHLORIDE 107 mmol/L (98-107); GLUCOSE 72 mg/dL (75-110); POTASSIUM 3.6 mmol/L (3.6-5.0); TOTAL PROTEIN 6.4 g/dL (6.3-8.2)
--- NOTE | 2019-02-07 09:48 | RADIOLOGY REPORT (SQ) ---
EXAM DESCRIPTION: CHEST SINGLE VIEW COMPLETED DATE/TIME: 02/07/2019 9:38 am REASON FOR STUDY: AMS COMPARISON: 08/23/2012. FINDINGS: Single-view chest, AP portable upright. Lungs are clear. Stable cardiomediastinal silhouette. Osteopenia with healing anterior left rib fracture, likely the 3rd. No pneumothorax. TECHNICAL DOCUMENTATION: JOB ID: [id number] Reading location - IP/workstation name: [email or web address]
[2019-02-07] MEDS ORDERED: CEFTRIAXONE INJ 1000 MG VIAL IV ONE (10:12)
[2019-02-07] MEDS ORDERED: LORAZEPAM INJ 2 MG/1 ML VIAL IV ONE ×2 (10:27→23:00)
--- NOTE | 2019-02-07 10:42 | RADIOLOGY REPORT (SQ) ---
EXAM DESCRIPTION: PELVIS AP COMPLETED DATE/TIME: 02/07/2019 10:33 am REASON FOR STUDY: r/o fx. s/p fall COMPARISON: None. NUMBER OF VIEWS: Single AP view pelvis. LIMITATIONS: Localizing clinical information not provided. FINDINGS: Osteopenia. As assessed, pelvic bones are intact. Apparent lucencies in both femoral nec k regions which may be artifact. Unilateral or bilateral non displaced hip fractures not excluded. Degenerative narrowing in the hips. OTHER: No other significant finding. IMPRESSION: Irregular lucencies through both femoral necks. Recommend further evaluation with CT. TECHNICAL DOCUMENTATION: JOB ID: [id number] Reading location - IP/workstation name: [email or web address]
[2019-02-07] MEDS ORDERED: HALOPERIDOL LACTATE INJ 5 MG/1 ML VIAL IM ONE (11:30)
--- NOTE | 2019-02-07 12:55 | RADIOLOGY REPORT (SQ) ---
EXAM DESCRIPTION: CT HEAD WITHOUT COMPLETED DATE/TIME: 02/07/2019 12:44 pm REASON FOR STUDY: AMS, Recurrant falls COMPARISON: 11/19/2018. TECHNIQUE: Axial images acquired through the brain without intravenous contrast. Images reviewed wi th bone, brain and subdural windows. Additional sagittal and coronal reconstructions were generated. Images stored on PACS. All CT scanners at this facility use dose modulation, iterative reconstruction, and/or weight based d osing when appropriate to reduce radiation dose to as low as reasonably achievable (ALARA). [facility]: Dose Right [facility]: CareDose [facility]: Dose Right [facility]: Teradose 4D [facility]: Intell[employer]ense RADIATION DOSE: CT Rad equipment meets quality standard of care and radiation dose reduction techniq ues were employed. CTDIvol: 53.2 mGy. DLP: 1017 mGy-cm. mGy. LIMITATIONS: Initial scanning was nondiagnostic due to motion. Repeat scanning is mildly persistent ly limited by motion. FINDINGS: VENTRICLES: Prominent. Chronic appearance. CEREBRUM: No masses. No hemorrhage. No midline shift. No evidence for acute infarction. Chronic wh ite matter low densities, small vessel disease. CEREBELLUM: No masses. No hemorrhage. No alteration of density. No evidence for acute infarction. EXTRAAXIAL SPACES: No fluid collections. No masses. ORBITS AND GLOBE: No intra- or extraconal masses. Normal contour of globe without masses. CALVARIUM: No fracture. PARANASAL SINUSES: No fluid or mucosal thickening. SOFT TISSUES: No mass or hematoma. OTHER: No other significant finding. IMPRESSION: 1. Somewhat limited study. 2. Chronic changes without acute abnormality detected. EVIDENCE OF ACUTE STROKE: NO. COMMENT: Quality ID # 436: Final reports with documentation of one or more dose reduction techniques (e.g., Automated exposure control, adjustment of the mA and/or kV according to patient size, use of iterative reconstruction technique) TECHNICAL DOCUMENTATION: JOB ID: [id number] [employer]- All Rights Reserved Reading location - IP/workstation name: [email or web address]
--- NOTE | 2019-02-07 13:06 | RADIOLOGY REPORT (SQ) ---
EXAM DESCRIPTION: CT PELVIS WITHOUT COMPLETED DATE/TIME: 02/07/2019 12:45 pm REASON FOR STUDY: Abn plain film; r/o hip fx. COMPARISON: Lumbar spine radiographs 2013. TECHNIQUE: CT scan of the pelvis performed without intravenous or oral contrast. Images reviewed wi th soft tissue and bone windows. Reconstructed coronal and sagittal MPR images reviewed. All images stored on PACS. All CT scanners at this facility use dose modulation, iterative reconstruction, and/or weight based d osing when appropriate to reduce radiation dose to as low as reasonably achievable (ALARA). [facility]: Dose Right [facility]: CareDose [facility]: Dose Right [facility]: Teradose 4D [facility]: Smart [employer] RADIATION DOSE: CT Rad equipment meets quality standard of care and radiation dose reduction techniq ues were employed. CTDIvol: 14.4 mGy. DLP: 525 mGy-cm. mGy. LIMITATIONS: None. FINDINGS: PELVIC BONES: Bone island in the left ilium. No sacral or acetabular or pubic fracture. VISUALIZED SPINE: Slight compression deformities at L4 and L5, chronic compared with radiographs. Sandro ne island at the base of the L4 pedicle on the right. HIP(S): Degenerative narrowing and spurring. This explains recent appearance on radiographs, along w ith osteopenia. No fracture evident. No suspicious bone lesion. PELVIC SOFT TISSUES: No significant findings. EXTRAPELVIC SOFT TISSUES: No significant findings. OTHER: No other significant finding. IMPRESSION: 1. Osteopenia and degenerative changes. 2. No hip or pelvic fracture identified. Findings on recent radiographs were artifact. TECHNICAL DOCUMENTATION: JOB ID: [id number] Quality ID # [id number]: Final reports with documentation of one or more dose reduction techniques (e.g., Au tomated exposure control, adjustment of the mA and/or kV according to patient size, use of iterative reconstruction technique) 2010 [employer]- All Rights Reserved Reading location - IP/workstation name: [email or web address]
[2019-02-07] MEDS ORDERED: MAG HYDROX/AL HYDROX/SIMETH SUSP 30 ML UDCUP PO PRN (13:45)
[2019-02-07] MEDS ORDERED: ONDANSETRON HCL INJ/PF 4 MG/2 ML SDV IV PRN (13:45)
[2019-02-07] MEDS ORDERED: ACETAMINOPHEN 325 MG TABLET PO PRN (13:45)
--- NOTE | 2019-02-07 13:56 | PDOC H&P ---
History of Present Illness Admission Date/PCP: 02/07/19 13:42 Unknown primary care Patient complains of: Agitation and diminished oral intake History of Present Illness: DONNA CLAY is a 88 year old female who presents the ER via EMS. Patient family not at bedside at this time. Patient is demented and unable to answer questions at this time secondary to dementia and receiving Haldol and Ativan in the ER. Unable to complete further history and physical. Past Medical History Cardiac Medical History: Reports: Hypertension - reports history of high blood pressure but no longer taking medications Denies: Coronary Artery Disease Pulmonary Medical History: Denies: Asthma Endocrine Medical History: Denies: Diabetes Mellitus Type 1, Diabetes Mellitus Type 2 Musculoskeltal Medical History: Reports: Arthritis - osteoprosis Psychiatric Medical History: Reports: Dementia Past Surgical History Past Surgical History: Reports: Tubal Ligation Social History Information Source: Patient Lives with: Family Smoking Status: Unknown if Ever Smoked Frequency of Alcohol Use: None Hx Recreational Drug Use: No Drugs: None Hx Prescription Drug Abuse: No - Advance Directive Resuscitation Status: Full Code Family History Family History: Other - Unable to assess secondary to patient's mental status Parental Family History Reviewed: No - Unable to assess secondary to patient's mental status Children Family History Reviewed: Unknown Sibling(s) Family History Reviewed.: Unknown Medication/Allergy Allergies/Adverse Reactions: No Known Allergies Allergy (Verified 02/07/19 10:18) Review of Systems ROS unobtainable: Due to mental status Physical Exam Vital Signs: Temp Pulse Resp BP Pulse Ox 97.9 F 68 16 137/100 H 100 02/07/19 08:10 02/07/19 08:10 02/07/19 08:10 02/07/19 08:10 02/07/19 08:10 Intake & Output 02/06/19 02/07/19 02/08/19 06:59 06:59 05:59 Intake Total 1000 Balance 1000 Weight 58.06 kg General appearance: PRESENT: no acute distress, well-developed, well-nourished Head exam: PRESENT: atraumatic, normocephalic Eye exam: PRESENT: conjunctiva pink, EOMI, PERRLA. ABSENT: scleral icterus Ear exam: PRESENT: normal external ear exam Mouth exam: PRESENT: moist, tongue midline Neck exam: ABSENT: carotid bruit, JVD, lymphadenopathy, thyromegaly Respiratory exam: PRESENT: clear to auscultation maya, decreased breath sounds, symmetrical, unlabored. ABSENT: rales, rhonchi, wheezes Cardiovascular exam: PRESENT: RRR. ABSENT: diastolic murmur, rubs, systolic murmur Pulses: PRESENT: normal dorsalis pedis pul Vascular exam: PRESENT: normal capillary refill GI/Abdominal exam: PRESENT: normal bowel sounds, soft. ABSENT: distended, guarding, mass, organolmegaly, rebound, tenderness Rectal exam: PRESENT: deferred Extremities exam: PRESENT: full ROM. ABSENT: calf tenderness, clubbing, pedal edema Neurological exam: PRESENT: other - Unable to assess secondary to patient mental status. ABSENT: motor sensory deficit Psychiatric exam: PRESENT: other - Unable to assess secondary to patient mental status. ABSENT: homicidal ideation, suicidal ideation Skin exam: PRESENT: dry, intact, warm. ABSENT: cyanosis, rash Results Laboratory Results: 02/07/19 08:57 02/07/19 08:57 02/07/19 02/07/19 02/07/19 08:57 08:57 08:57 WBC 8.8 RBC 3.83 Hgb 10.6 L Hct 33.0 L MCV 86 MCH 27.7 MCHC 32.1 RDW 17.5 H Plt Count 318 Seg Neutrophils % 59.8 Sodium 137.9 Potassium 3.6 Chloride 107 Carbon Dioxide 26 Anion Gap 5 BUN 14 Creatinine 0.82 Est GFR ( Amer) > 60 Glucose 72 L Calcium 8.7 Magnesium 2.4 H Total Bilirubin 0.9 AST 25 Alkaline Phosphatase 38 Total Protein 6.4 Albumin 3.7 Urine Color YELLOW Urine Appearance CLOUDY Urine pH 8.0 Ur Specific [place] 1.009 Urine Protein NEGATIVE Urine Glucose (UA) NEGATIVE Urine Ketones NEGATIVE Urine Blood MODERATE H Urine Nitrite NEGATIVE Ur Leukocyte Esterase MODERATE H Urine WBC (Auto) 4 Urine RBC (Auto) 11 Impressions: Head CT 02/07/19 10:09 IMPRESSION: 1. Somewhat limited study. 2. Chronic changes without acute abnormality detected. EVIDENCE OF ACUTE STROKE: NO. Pelvis X-Ray 02/07/19 10:10 IMPRESSION: Irregular lucencies through both femoral necks. Recommend further evaluation with CT. Pelvis CT 02/07/19 11:26 IMPRESSION: 1. Osteopenia and degenerative changes. 2. No hip or pelvic fracture identified. Findings on recent radiographs were artifact. Assessment and Plan - Diagnosis (1) Urinary tract infection Qualifiers: Urinary tract infection type: acute cystitis Hematuria presence: without hematuria Qualified Code(s): N30.00 - Acute cystitis without hematuria Is this a current diagnosis for this admission?: Yes Plan: 02/07/2019-Rocephin 1 g IV daily await urine culture (2) Dehydration Is this a current diagnosis for this admission?: Yes Plan: 02/07/2019-hydrate patient overnight normal saline 75 mL an hour. Reassess in the a.m. (3) Dementia Qualifiers: Dementia type: unspecified type Dementia behavioral disturbance: with behavioral disturbance Qualified Code(s): F03.91 - Unspecified dementia with behavioral disturbance Is this a current diagnosis for this admission?: Yes Plan: 02/07/2019-patient at baseline. Continue to follow will give medication for agitation as needed - Time Time Spent with patient: 35 or more minutes
[2019-02-07] MEDS ORDERED: INFLUENZA QUAD (6MOS+) 2019-20 VAC 0.5 ML SYR IM ONE (15:28)
[2019-02-07] MEDS: NORMAL SALINE 1000 ML 1,000 ML IV PRN (16:14)
[2019-02-07] MEDS: ENOXAPARIN SODIUM INJ 40 MG/0.4 ML DISP.SYRIN SUBCUT SCH (16:14)
[2019-02-07] MEDS ORDERED: HALOPERIDOL LACTATE INJ 5 MG/1 ML VIAL IV ONE (23:00)
[2019-02-08] MEDS: NORMAL SALINE 1000 ML 1,000 ML IV PRN (05:35)
--- NOTE | 2019-02-08 07:48 | PDOC PROGRESS REPORT ---
Subjective Progress Note for:: 02/08/19 Subjective:: 02/08/2019-no complaints this a.m. Reason For Visit: UTI Physical Exam Vital Signs: Temp Pulse Resp BP Pulse Ox 97.8 F 69 17 148/67 H 94 02/07/19 23:22 02/07/19 23:22 02/07/19 23:22 02/07/19 23:22 02/07/19 23:22 Intake & Output 02/07/19 02/08/19 02/09/19 07:59 06:59 06:59 Intake Total Balance Weight General appearance: PRESENT: no acute distress, well-developed, well-nourished Neck exam: ABSENT: carotid bruit, JVD, lymphadenopathy, thyromegaly Respiratory exam: PRESENT: clear to auscultation maya. ABSENT: rales, rhonchi, wheezes Cardiovascular exam: PRESENT: RRR. ABSENT: diastolic murmur, rubs, systolic murmur Pulses: PRESENT: +1 pedal pulses bilateral Vascular exam: PRESENT: normal capillary refill GI/Abdominal exam: PRESENT: normal bowel sounds, soft. ABSENT: distended, guarding, mass, organolmegaly, rebound, tenderness Extremities exam: PRESENT: full ROM. ABSENT: calf tenderness, clubbing, pedal edema Neurological exam: PRESENT: other - Unable to assess secondary to mental status Psychiatric exam: PRESENT: other - Unable to assess secondary to mental status Skin exam: PRESENT: dry, intact, warm. ABSENT: cyanosis, rash Results Laboratory Results: 02/07/19 08:57 02/07/19 08:57 02/07/19 02/07/19 02/07/19 08:57 08:57 08:57 WBC 8.8 RBC 3.83 Hgb 10.6 L Hct 33.0 L MCV 86 MCH 27.7 MCHC 32.1 RDW 17.5 H Plt Count 318 Seg Neutrophils % 59.8 Sodium 137.9 Potassium 3.6 Chloride 107 Carbon Dioxide 26 Anion Gap 5 BUN 14 Creatinine 0.82 Est GFR ( Amer) > 60 Glucose 72 L Calcium 8.7 Magnesium 2.4 H Total Bilirubin 0.9 AST 25 Alkaline Phosphatase 38 Total Protein 6.4 Albumin 3.7 Urine Color YELLOW Urine Appearance CLOUDY Urine pH 8.0 Ur Specific [place] 1.009 Urine Protein NEGATIVE Urine Glucose (UA) NEGATIVE Urine Ketones NEGATIVE Urine Blood MODERATE H Urine Nitrite NEGATIVE Ur Leukocyte Esterase MODERATE H Urine WBC (Auto) 4 Urine RBC (Auto) 11 Impressions: Head CT 02/07/19 10:09 IMPRESSION: 1. Somewhat limited study. 2. Chronic changes without acute abnormality detected. EVIDENCE OF ACUTE STROKE: NO. Pelvis X-Ray 02/07/19 10:10 IMPRESSION: Irregular lucencies through both femoral necks. Recommend further evaluation with CT. Pelvis CT 02/07/19 11:26 IMPRESSION: 1. Osteopenia and degenerative changes. 2. No hip or pelvic fracture identified. Findings on recent radiographs were artifact. Assessment and Plan - Diagnosis (1) Urinary tract infection Qualifiers: Urinary tract infection type: acute cystitis Hematuria presence: without hematuria Qualified Code(s): N30.00 - Acute cystitis without hematuria Is this a current diagnosis for this admission?: Yes Plan: 02/07/2019-Rocephin 1 g IV daily await urine culture . 02/08/2019-continue Rocephin await cultures (2) Dehydration Is this a current diagnosis for this admission?: Yes Plan: 02/07/2019-hydrate patient overnight normal saline 75 mL an hour. Reassess in the a.m. 02/08/2019-improved. DC IV fluids (3) Dementia Qualifiers: Dementia type: unspecified type Dementia behavioral disturbance: with behavioral disturbance Qualified Code(s): F03.91 - Unspecified dementia with behavioral disturbance Is this a current diagnosis for this admission?: Yes Plan: 02/07/2019-patient at baseline. Continue to follow will give medication for agitation as needed 02/08/2019-patient continues at baseline. - Time Time Spent with patient: 15-24 minutes
[2019-02-08 09:53] LABS: HEMOGLOBIN 10.7 g/dL (12.0-15.5); MEAN CORPUSCULAR HEMOGLOBIN 27.4 pg (27.0-33.4); MEAN CORPUSCULAR HGB CONC 31.6 g/dL (32.0-36.0); MEAN CORPUSCULAR VOLUME 87 fl (80-97); PLATELET COUNT 282 10^3/uL (150-450); RED BLOOD COUNT 3.92 10^6/uL (3.72-5.28); RED CELL DISTRIBUTION WIDTH 17.8 % (11.5-14.0); WHITE BLOOD COUNT 11.5 10^3/uL (4.0-10.5)
[2019-02-08] MEDS ORDERED: CEFTRIAXONE 1 GM/D5W RTU 1 GM/50 ML RTUPB IV SCH (10:00)
[2019-02-08] MEDS: ENOXAPARIN SODIUM INJ 40 MG/0.4 ML DISP.SYRIN SUBCUT SCH (10:04)
[2019-02-08 10:07] LABS: ANION GAP 7 (5-19); BLOOD UREA NITROGEN 7 mg/dL (7-20); CALCIUM 7.5 mg/dL (8.4-10.2); CARBON DIOXIDE 24 mmol/L (22-30); CHLORIDE 105 mmol/L (98-107); PHOSPHORUS 2.7 mg/dL (2.5-4.5); POTASSIUM 3.3 mmol/L (3.6-5.0)
[2019-02-08 10:10] LABS: GLUCOSE 60 mg/dL (75-110)
--- NOTE | 2019-02-08 11:10 | ADVANCED CARE ---
- Diagnosis (1) Urinary tract infection Diagnosis Current: Yes (2) Dehydration Diagnosis Current: Yes (3) Dementia Diagnosis Current: Yes Attendance: Myself, patient's , patient's son and grandson along with patient Resuscitation Status: Full Code Discussion: Discussion with patient about patient's most likely outcome for this hospitalization. Patient started not eating about 1 week ago. Had an extra decline since then. Patient is not responding at this time will not take medication will not eat or participate in any event. I discussed with patient's family about the graveness of her disorder at this time. Patient's family states they just want to make her comfortable and let nature take its course. I find this appropriate at this time. Care Planning Goals: 1-comfort measures 2-morphine PRN for pain or anxiety 3-Ativan PRN for anxiety 4-atropine drops as needed for secretions. 5-Assure patient since needs are met completely. Time Spent: 25 minutes
[2019-02-08] MEDS: LORAZEPAM INJ 2 MG/1 ML VIAL IV PRN ×3 (11:45→19:30)
[2019-02-08] MEDS ORDERED: ATROPINE SULFATE 1% OPH SOLN 5 ML BOTTLE SL PRN (12:00)
[2019-02-08 22:32] VITALS: BP 146/60
[2019-02-09] MEDS: LORAZEPAM INJ 2 MG/1 ML VIAL IV PRN ×5 (06:26→21:52)
--- NOTE | 2019-02-09 09:12 | PDOC PROGRESS REPORT ---
Subjective Progress Note for:: 02/09/19 Subjective:: 02/08/2019-no complaints this a.m. 02/09/2019-no complaints Reason For Visit: UTI Physical Exam Vital Signs: Temp Pulse Resp BP Pulse Ox 98.0 F 74 20 146/60 H 95 02/08/19 08:54 02/08/19 08:54 02/08/19 08:54 02/08/19 08:54 02/08/19 08:54 Intake & Output 02/08/19 02/09/19 02/10/19 06:59 06:59 06:59 Intake Total 378 Balance 378 Weight General appearance: PRESENT: no acute distress, well-developed, well-nourished Neck exam: ABSENT: carotid bruit, JVD, lymphadenopathy, thyromegaly Respiratory exam: PRESENT: clear to auscultation maya, decreased breath sounds, symmetrical, unlabored. ABSENT: rales, rhonchi, wheezes Cardiovascular exam: PRESENT: RRR. ABSENT: diastolic murmur, rubs, systolic murmur Pulses: PRESENT: +1 pedal pulses bilateral Vascular exam: PRESENT: normal capillary refill GI/Abdominal exam: PRESENT: normal bowel sounds, soft. ABSENT: distended, guarding, mass, organolmegaly, rebound, tenderness Extremities exam: PRESENT: full ROM. ABSENT: calf tenderness, clubbing, pedal edema Neurological exam: PRESENT: other - Unable to assess Psychiatric exam: PRESENT: other - Unable to assess Skin exam: PRESENT: dry, intact, warm. ABSENT: cyanosis, rash Results Laboratory Results: 02/08/19 09:29 02/08/19 09:29 02/08/19 02/08/19 09:29 09:29 WBC 11.5 H RBC 3.92 Hgb 10.7 L Hct 34.0 L MCV 87 MCH 27.4 MCHC 31.6 L RDW 17.8 H Plt Count 282 Sodium 136.2 L Potassium 3.3 L Chloride 105 Carbon Dioxide 24 Anion Gap 7 BUN 7 Creatinine 0.59 Est GFR ( Amer) > 60 Glucose 60 L Calcium 7.5 L Phosphorus 2.7 Magnesium 2.0 Impressions: Head CT 02/07/19 10:09 IMPRESSION: 1. Somewhat limited study. 2. Chronic changes without acute abnormality detected. EVIDENCE OF ACUTE STROKE: NO. Pelvis X-Ray 02/07/19 10:10 IMPRESSION: Irregular lucencies through both femoral necks. Recommend further evaluation with CT. Pelvis CT 02/07/19 11:26 IMPRESSION: 1. Osteopenia and degenerative changes. 2. No hip or pelvic fracture identified. Findings on recent radiographs were artifact. Assessment and Plan - Diagnosis (1) Urinary tract infection Qualifiers: Urinary tract infection type: acute cystitis Hematuria presence: without hematuria Qualified Code(s): N30.00 - Acute cystitis without hematuria Is this a current diagnosis for this admission?: Yes Plan: 02/07/2019-Rocephin 1 g IV daily await urine culture . 02/08/2019-continue Rocephin await cultures 02/09/2019-after long discussion with patient's family yesterday with me patient comfort measures only. (2) Dehydration Is this a current diagnosis for this admission?: Yes Plan: 02/07/2019-hydrate patient overnight normal saline 75 mL an hour. Reassess in the a.m. 02/08/2019-improved. DC IV fluids 02/09/2019-see #1 (3) Dementia Qualifiers: Dementia type: unspecified type Dementia behavioral disturbance: with behavioral disturbance Qualified Code(s): F03.91 - Unspecified dementia with behavioral disturbance Is this a current diagnosis for this admission?: Yes Plan: 02/07/2019-patient at baseline. Continue to follow will give medication for agitation as needed 02/08/2019-patient continues at baseline. 10/09/2018-comfort measures - Time Time Spent with patient: Less than 15 minutes - Inpatient Certification Based on my medical assessment, after consideration of the patient's comorbidities, presenting symptoms, or acuity I expect that the services needed warrant INPATIENT care.: Yes I certify that my determination is in accordance with my understanding of Medicare's requirements for reasonable and necessary INPATIENT services [42 CFR 412.3e].: Yes Medical Necessity: Other - Comfort measures
[2019-02-09] MEDS: MORPHINE SULFATE 10 MG/ML INJ IV PRN ×3 (15:58→21:53)
[2019-02-10] MEDS: MORPHINE SULFATE 10 MG/ML INJ IV PRN ×5 (06:41→17:12)
[2019-02-10] MEDS: LORAZEPAM INJ 2 MG/1 ML VIAL IV PRN ×5 (06:41→17:13)
--- NOTE | 2019-02-10 15:05 | PDOC TRANSFER SUMMARY ---
General - Admit/Disc Date/PCP Admission Date/Primary Care Provider: 02/07/19 13:42 Discharge Date: 02/10/19 - Discharge Diagnosis (1) Advanced dementia Is this a current diagnosis for this admission?: Yes (2) Dehydration Is this a current diagnosis for this admission?: Yes - Additional Information Resuscitation Status: Do Not Resuscitate History of Present Illness Admission Date/PCP: 02/07/19 13:42 History of Present Illness: Admitting hospitalist's H&P: DONNA CLAY is a 88 year old female who presents the ER via EMS. Patient was brought into to worsening intake and increasing agitation and confusion at home. Hospital Course Hospital Course: This is an 88-year-old female with advanced dementia who was brought in due to increasing confusion, agitation and poor oral intake at home. Family reports that is only oriented to person her baseline. She was deemed to advancing dementia. She was made comfort measures only after lengthy discussion with family and the previous providers. Patient is scheduled to go for inpatient hospice today. Physical Exam Vital Signs: Temp Pulse Resp BP Pulse Ox 98.0 F 74 20 146/60 H 95 02/08/19 08:54 02/08/19 08:54 02/08/19 08:54 02/08/19 08:54 02/08/19 08:54 Intake & Output 02/09/19 02/10/19 02/11/19 06:59 06:59 06:59 Intake Total 378 Balance 378 General appearance: PRESENT: no acute distress Head exam: PRESENT: atraumatic, normocephalic Eye exam: PRESENT: conjunctiva pink, EOMI, PERRLA. ABSENT: scleral icterus Ear exam: PRESENT: normal external ear exam Mouth exam: PRESENT: moist, tongue midline Neck exam: ABSENT: carotid bruit, JVD, lymphadenopathy, thyromegaly Respiratory exam: PRESENT: rhonchi. ABSENT: rales, wheezes GI/Abdominal exam: PRESENT: normal bowel sounds, soft. ABSENT: distended, guarding, mass, organolmegaly, rebound, tenderness Rectal exam: PRESENT: deferred Neurological exam: PRESENT: other - asleep Results Laboratory Results: 02/08/19 09:29 02/08/19 09:29 Impressions: Head CT 02/07/19 10:09 IMPRESSION: 1. Somewhat limited study. 2. Chronic changes without acute abnormality detected. EVIDENCE OF ACUTE STROKE: NO. Pelvis X-Ray 02/07/19 10:10 IMPRESSION: Irregular lucencies through both femoral necks. Recommend further evaluation with CT. Pelvis CT 02/07/19 11:26 IMPRESSION: 1. Osteopenia and degenerative changes. 2. No hip or pelvic fracture identified. Findings on recent radiographs were artifact. Qualifiers PATIENT BEING DISCHARGED WITH ANY OF THE FOLLOWING DIAGNOSIS: No
== END 2019-02-10 17:20 | disposition hospice, inpatient (51) ==
LOC: ER 08:06 → EH 13:42 → INTOOBSV 13:42 → 4S 14:55
PROVIDERS: ADMIT Hospitalist; ATTEND Internal Medicine
DX: F03.91 Unspecified dementia, unspecified severity, with behavioral disturbance (principal); E86.0 Dehydration; N30.00 Acute cystitis without hematuria; R63.0 Anorexia; I69.351 Hemiplegia and hemiparesis following cerebral infarction affecting right dominant side; R60.0 Localized edema; M81.0 Age-related osteoporosis without current pathological fracture; Z66 Do not resuscitate; Z91.81 History of falling; Z79.899 Other long term (current) drug therapy; Z79.02 Long term (current) use of antithrombotics/antiplatelets
CPT/HCPCS: 99285; 96372; 96361; 96375; 96365; 36415 ×2; 83735 ×2; 84100; 85025; 85027; 80048; 80053; 81001; 71045; 72170; 70450; 72192; 97530; 97163; G0378 ×5; A9270 ×2; J1630; J2270 ×2; J1650 ×2; J2060 ×4; J0696 ×2; J3490 ×2; J7030 ×2